=== PATIENT | female | born 1945 | race Caucasian/White ===

== ENCOUNTER 2018-10-02 05:48 | Inpatient (IN) | payer BC ==
[2018-09-24 12:41] VITALS: BMI 33.3
[2018-10-02] MEDS ORDERED: CEFAZOLIN 1 GM/D5W 1 GRAM/50 ML BAG IVPB ONE (06:32)
[2018-10-02] MEDS ORDERED: GABAPENTIN 300 MG CAPSULE (FP) PO ONE (06:32)
[2018-10-02] MEDS ORDERED: TRANEXAMIC ACID 1000 MG/10 ML VIAL IVPUSH ONE (06:32)
[2018-10-02] MEDS ORDERED: CELECOXIB 200 MG CAPSULE PO ONE (06:32)
[2018-10-02] MEDS ORDERED: VANCOMYCIN 1,000 MG VIAL (RESTRICTED TO ID ONLY) ONE (07:14)
[2018-10-02] MEDS ORDERED: ceFAZolin SODIUM 1 GM VIAL ONE ×2 (07:14→08:35)
[2018-10-02] MEDS ORDERED: MIDAZOLAM HCL 2 MG/2 ML SINGLE DOSE VIAL ONE (07:24)
[2018-10-02] MEDS ORDERED: BUPIVACAINE LIPOSOME/PF (EXPAREL) 266 MG/20 ML VIAL ONE (07:24)
[2018-10-02] MEDS ORDERED: SODIUM CHLORIDE 0.9% P/F 10 ML VIAL IJ ONE (07:24)
--- NOTE | 2018-10-02 07:52 | HP ---
Satellite [facility] - Chief Complaint Chief Complaint: left knee pain - Past Medical History Allergies/Adverse Reactions: Allergies Allergy/AdvReac Type Severity Reaction Status Date / Time metronidazole [From Flagyl] Allergy Severe RESPIRATORY Verified 10/02/18 06:51 DISTRESS, SWELLING mushroom Allergy Severe SEVERE Verified 10/02/18 06:51 ABDOMINAL PAIN - Current Medications Current Medications: Home Medications Medication Instructions Recorded Albuterol 0.083% Nebulizer Ruma 1 neb NEB Q6H PRN 09/18/18 [Ventolin 0.083% Nebulizer Soln -] Albuterol Sulfate [Proair Hfa] 8.5 gm IH PRN PRN 09/18/18 Citalopram Hydrobromide [Celexa -] 20 mg PO DAILY 09/18/18 Fluticasone/Salmeterol [Advair 1 each IH BID 09/18/18 250-50 Diskus] Metoprolol Succinate [Toprol Xl] 25 mg PO HS 09/18/18 Omeprazole Magnesium [Prilosec Otc] 20 mg PO PRN PRN 09/18/18 Rivaroxaban [Xarelto -] 20 mg PO HS 09/18/18 Triamterene/Hydrochlorothiazid 1 cap PO DAILY 09/18/18 [Triamterene-Hctz 37.5-25 mg Cp] clonazePAM [Klonopin -] 0.5 mg PO PRN PRN 09/18/18 Satellite Physical Exam - Physical Examination Vital Signs: Vital Signs Period Temp Pulse Resp BP Sys/Salazar Pulse Ox Last 24 Hr 97.8 F 67 18 102/62 98 General Appearance: Well Nourished, Well Developed, Alert & Oriented x3 ENT: Clear Lung: Normal air movement Heart: Regular rate & rhythm Extremities: Other (left knee- + swelling, + ttp, decr rom, nvi xrays show grade 4 tricompartmental djd) Neurological: Intact, Alert, Oriented Satellite Impression/Plan - Impression/Plan Impression: left knee djd Operative Procedure: left ricardo tkr Date to be Performed: 10/02/18
[2018-10-02] MEDS ORDERED: PROPOFOL 20 ML ONE (08:35)
[2018-10-02] MEDS ORDERED: TRANEXAMIC ACID 1000 MG/10 ML VIAL ONE (08:41)
[2018-10-02] MEDS ORDERED: ALBUTEROL SO4 0.083% IH SOL 2.5 MG/3 ML VIAL.NEB. NEB PRN (10:12)
[2018-10-02] MEDS ORDERED: ALBUTEROL SO4 8 GM HFA INHALER IH PRN (10:12)
[2018-10-02] MEDS ORDERED: clonazePAM 0.5 MG TABLET PO PRN (10:12)
[2018-10-02] MEDS ORDERED: MAG HYDROX/AL HYDROX/SIMETH 30 ML UNIT-DOSE CUP PO PRN (10:14)
[2018-10-02] MEDS ORDERED: MAGNESIUM HYDROX 2400MG/30ML ORAL SUSPENSION 30 ML CUP PO PRN (10:14)
[2018-10-02] MEDS ORDERED: LACTATED RINGERS SOLUTION 1,000 ML IV SCH (10:15)
--- NOTE | 2018-10-02 10:15 | OP ---
Operative Note - Note: Operative Date: 10/02/18 (gene) Pre-Operative Diagnosis: left knee djd Operation: left ricardo tkr Post-Operative Diagnosis: Same as Pre-op Surgeon: Yosi Clay Engraver Automatic: Greg Alvarado Anesthesiologist/POULTRY HATCHERY MANAGER: Jenny West Anesthesia: Spinal, Local Specimens Removed: bone fragments Estimated Blood Loss (mls): 150 Operative Report Dictated: Yes
[2018-10-02] MEDS ORDERED: oxyCODONE HCL 5 MG TABLET ONE (12:45)
[2018-10-02] MEDS ORDERED: ONDANSETRON 4 MG/2 ML VIAL IVPUSH PRN (13:08)
[2018-10-02] MEDS: oxyCODONE HCL 5 MG TABLET PO PRN ×2 (15:11→18:23)
[2018-10-02] MEDS: ACETAMINOPHEN 325 MG TABLET (FP) PO SCH ×2 (15:11→20:21)
--- NOTE | 2018-10-02 15:19 | SPEC ---
DATE OF OPERATION: 10/02/2018 PREOPERATIVE DIAGNOSIS: Degenerative joint disease, left knee. POSTOPERATIVE DIAGNOSIS: Degenerative joint disease, left knee. PROCEDURE: Press-Fit left total knee replacement with robotic-assisted navigation (MAKOplasty). SURGICAL ATTENDING: Yosi Clay MD PHILOSOPHY AND RELIGION INSTRUCTOR: LUIS ALBERTO Cano ANESTHESIA: Regional and spinal. CLOSURE: A cementless Triathlon knee system with a 3 tibia, a 4 femur, an 11 polyethylene, a 32 patella; No. 1 Vicryl fascia, 0 and 2-0 subcutaneous; and 3-0 Monocryl subcuticular with skin glue for skin; 4-0 undyed Vicryl for pin sites. ESTIMATED BLOOD LOSS: Less than 100 mL. COMPLICATIONS: None. CONDITION: To recovery room in stable condition. DESCRIPTION OF OPERATIVE PROCEDURE: Patient was taken to the operating room on October 02, 2018. Regional and spinal anesthesia was administered by the anesthesiologist. IV Kefzol was administered prophylactically prior to the case as well as TXA. The left lower extremity was prepped and draped in the usual sterile fashion. The midline 10- to 12-cm longitudinal incision was made. Hemostasis was achieved with Bovie cautery. Sharp dissection was carried down to the extensor mechanism which was perform the procedure. Medial parapatellar arthrotomy was then performed, leaving a cuff of tissue for later closure. The patella was inverted and the knee was flexed up. The fat pad was excised. Subperiosteal dissection was done on the anteromedial proximal tibia until the knee was able to be brought forward. This was facilitated by taking the ACL, PCL and medial and lateral menisci. Checkpoints were placed in both the femur and in the tibia. Two parallel threaded pins were drilled superior to the knee joint through the already made incision from anterior to posterior just going through the anterior cortex but just engaging but not going through the posterior cortex. Two threaded pins were drilled through 2 small stab incisions in parallel fashion 1 handbreadth below the tibial tubercle through the anterior cortex of the tibia and engaging but not going through the posterior cortex. Both sets of pins were attached to navigation arrays for the MONIKA system. The knee was then registered with the navigation system with center of rotation of the hip, medial and lateral malleoli and multiple sites both on the tibia and on the femur. Confirmation of excellent registration was confirmed by "popping the bubbles." At this time, the knee was thoroughly inspected to remove all osteophytes around the knee. The knee was then tensioned in varus/valgus at both full extension and at 90 degrees of flexion to ascertain our gaps. The virtual position of the components was optimized to ensure equal gaps throughout the range of motion. Once this was performed, the robot was brought into the field, was registered. The bone was cut as per the specifications on both the tibia and on the femur. The box cuts were then made as well. Excellent trial stability was obtained on the femur. The tibial baseplate was allowed to "find itself" and then was clipped into place. Confirmation of excellent external rotation of that component was confirmed by the navigation device as well.The patella was calibered for thickness and cut at the appropriate level. The appropriate lollipop was used to drill 3 holes in the patella and a trial asymmetric patellar button was applied. The knee was taken through a range of motion and found to have excellent stability from full extension to full flexion with excellent tracking of the patella. The trial components were then removed. The lug holes were drilled in the femur. The cementless keel was punched in the tibia. The real Press-Fit components were malleted into place, first with the tibia and then with the femur, and then the patella was crimped into place as well. The real polyethylene liner was then clipped into place. Range of motion, stability and tracking were as described earlier. The knee was thoroughly irrigated with copious amounts of irrigation. Vancomycin powder was placed inside the joint. The medial parapatellar arthrotomy was then closed using No. 1 Vicryl interrupted suture. Post closure of the arthrotomy, the knee was taken through a range of motion and found to have no undue tension on the repair. The subcutaneous was then pulse antibiotic irrigated, closed with 0 and 2-0 Vicryl and 3-0 Monocryl subcuticular with skin glue for the skin. Prior to closure, the checkpoints were removed as were the threaded pins. The tibial pin sites were closed with 4-0 undyed Vicryl. A sterile pressure Aquacel dressing was applied. No tourniquet was used during the case. The total blood loss was less than 100 mL. No complication. Patient was transferred to recovery in stable condition. Vicente [id number]
[2018-10-02] MEDS: CEFAZOLIN 2 GM/D5W 2 GM/50 ML ML IVPB SCH ×2 (16:00→23:57)
[2018-10-02] MEDS ORDERED: diazePAM 2 MG TABLET PO PRN (16:20)
[2018-10-02] MEDS ORDERED: PT OWN MED DRAWER 7, Y5N ONE (21:10)
[2018-10-02] MEDS: GABAPENTIN 300 MG CAPSULE (FP) PO SCH (21:56)
[2018-10-02] MEDS: SENNOSIDES/DOCUSATE COMBO (SENNA PLUS) TABLET (UD) PO SCH (21:56)
[2018-10-02] MEDS: oxyCODONE HCL 10 MG SUSTAINED ACTING TABLET PO SCH (21:56)
[2018-10-02] MEDS: BUDESONIDE/FORMETEROL FUMARATE 80/4.5 mcg INHALER IH SCH (21:57)
[2018-10-02] MEDS ORDERED: metoPROLOL SUCCINATE 25 MG TAB.SR.24H (FP) PO SCH (22:00)
[2018-10-03] MEDS: ACETAMINOPHEN 325 MG TABLET (FP) PO SCH ×4 (02:15→21:36)
[2018-10-03] MEDS: oxyCODONE HCL 5 MG TABLET PO PRN ×3 (06:27→21:59)
[2018-10-03 08:13] LABS: HEMATOCRIT 34.9 % (32.4-45.2); HEMOGLOBIN 11.7 GM/dl (10.7-15.3); MCH 28.8 pg (25.7-33.7); MCHC 33.5 g/dl (32.0-36.0); MEAN CELL VOLUME 85.9 fl (80-96); MEAN PLT VOLUME 6.6 fl (7.5-11.1); PLATELET COUNT 185 K/MM3 (134-434); RBC 4.06 M/mm3 (3.60-5.2); RDW 13.7 % (11.6-15.6); WHITE BLOOD COUNT 7.4 K/mm3 (4.0-10.8)
[2018-10-03] MEDS ORDERED: PT OWN MED DRAWER 7, Y5N ONE (09:05)
--- NOTE | 2018-10-03 09:46 | PN ---
Progress Note (short form) - Note Progress Note: Ortho Pt seen and examined s/p left ricardo tkr pod #1 Selected Entries 10/03/18 05:51 Temperature 98.1 F Pulse Rate 71 Respiratory 18 Rate Blood Pressure 100/65 Laboratory Tests 10/03/18 07:52 WBC 7.4 Hgb 11.7 Hct 34.9 Plt Count 185 dressing c/d/i, calf soft nt rom 0-40, nvi a/p PT dvt ppx pain control d/c home tomorrow if stable
[2018-10-03] MEDS: SENNOSIDES/DOCUSATE COMBO (SENNA PLUS) TABLET (UD) PO SCH ×2 (10:30→21:35)
[2018-10-03] MEDS: GABAPENTIN 300 MG CAPSULE (FP) PO SCH ×2 (10:37→21:35)
[2018-10-03] MEDS: PANTOPRAZOLE 40 MG TABLET (FP) PO SCH (10:37)
[2018-10-03] MEDS: CITALOPRAM HYDROBROMIDE 20 MG TABLET (FP) PO SCH (10:37)
[2018-10-03] MEDS: MULTIVITAMINS (DAILY MVI) TABLET (FP) PO SCH (10:37)
[2018-10-03] MEDS: oxyCODONE HCL 10 MG SUSTAINED ACTING TABLET PO SCH ×2 (10:38→21:35)
[2018-10-03] MEDS: TRIAMTERENE AND HCTZ - 37.5 MG/25 MG CAPSULE PO SCH (10:39)
[2018-10-03] MEDS: BUDESONIDE/FORMETEROL FUMARATE 80/4.5 mcg INHALER IH SCH ×2 (10:39→21:35)
--- NOTE | 2018-10-03 13:28 | PN ---
Progress Note (short form) - Note Progress Note: ANESTHESIOLOGY POST-OP CHECK 72F s/p left TKR under spinal anesthesia with PNB, POD #1. no acute complaints. Pain 6/10 and tolerable. Ambulating, tolerating PO, denies N/V, backache, headache, numbness, weakness. Vital Signs Temperature 98.1 F 10/03/18 05:51 Pulse Rate 71 10/03/18 05:51 Respiratory Rate 18 10/03/18 05:51 Blood Pressure 100/65 10/03/18 05:51 O2 Sat by Pulse Oximetry (%) 94 L 10/03/18 05:51 Active Medications Acetaminophen (Tylenol -) 650 mg PO Q6H [facility] Stop: 10/05/18 14:59 Last Admin: 10/03/18 10:23 Dose: 650 mg Al Hydroxide/Mg Hydroxide (Mylanta Oral Suspension -) 30 ml PO Q4H PRN PRN Reason: DYSPEPSIA Albuterol Sulfate (Ventolin 0.083% Nebulizer Soln -) 1 amp NEB Q6H PRN PRN Reason: ASTHMA Albuterol Sulfate (Ventolin Hfa Inhaler -) 2 puff IH PRN PRN PRN Reason: ASTHMA Budesonide/Formoterol Fumarate (Symbicort 80/4.5mcg -) 2 puff IH BID [facility] Last Admin: 10/03/18 10:39 Dose: 2 puff Citalopram Hydrobromide (Celexa -) 20 mg PO DAILY [facility] Last Admin: 10/03/18 10:37 Dose: 20 mg Clonazepam (Klonopin -) 0.5 mg PO DAILY PRN PRN Reason: ANXIETY Diazepam (Valium -) 2 mg PO Q4H PRN PRN Reason: MUSCLE SPASMS Stop: 10/05/18 16:21 Gabapentin (Neurontin -) 300 mg PO BID [facility] Last Admin: 10/03/18 10:37 Dose: 300 mg Magnesium Hydroxide (Milk Of Magnesia -) 30 ml PO PRN PRN PRN Reason: CONSTIPATION Metoprolol Succinate (Toprol Xl -) 25 mg PO [facility] Multivitamins/Minerals/Vitamin C (Tab-A-Vit -) 1 tab PO DAILY [facility] Last Admin: 10/03/18 10:37 Dose: 1 tab Ondansetron HCl (Zofran Injection) 4 mg IVPUSH Q6H PRN PRN Reason: NAUSEA AND/OR VOMITING Oxycodone HCl (Roxicodone -) 5 mg PO Q3H PRN PRN Reason: PAIN LEVEL 1-5 Last Admin: 10/03/18 10:38 Dose: 5 mg Oxycodone HCl (Roxicodone -) 10 mg PO Q3H PRN PRN Reason: PAIN LEVEL 6-10 Last Admin: 10/02/18 18:23 Dose: 10 mg Oxycodone HCl (Oxycontin -) 10 mg PO BID [facility] Stop: 10/05/18 13:09 Last Admin: 10/03/18 10:38 Dose: Not Given Pantoprazole Sodium (Protonix -) 40 mg PO DAILY [facility] Last Admin: 10/03/18 10:37 Dose: 40 mg Rivaroxaban (Xarelto -) 20 mg PO [facility] Senna/Docusate Sodium (Pericolace -) 2 tablet PO BID [facility] Last Admin: 10/03/18 10:30 Dose: 2 tablet Triamterene/HCTZ (Dyazide 25/37.5mg) 1 cap PO DAILY [facility] Last Admin: 10/03/18 10:39 Dose: Not Given Gen; awake, alert, NAD Ext: No sensory or motor deficits. No apparent anesthesia complications, pain well controlled. Continue management as per primary team.
[2018-10-03] MEDS ORDERED: RIVAROXABAN 10 MG TABLET PO SCH (22:00)
[2018-10-03] MEDS ORDERED: diphenhydrAMINE HCL 25 MG CAPSULE (FP) PO ONE (22:00)
[2018-10-04] MEDS: ACETAMINOPHEN 325 MG TABLET (FP) PO SCH ×3 (06:09→15:33)
[2018-10-04 08:29] LABS: HEMATOCRIT 32.4 % (32.4-45.2); MCH 28.8 pg (25.7-33.7); MCHC 33.9 g/dl (32.0-36.0); MEAN CELL VOLUME 85.1 fl (80-96); MEAN PLT VOLUME 6.8 fl (7.5-11.1); PLATELET COUNT 198 K/MM3 (134-434); RBC 3.81 M/mm3 (3.60-5.2); RDW 13.4 % (11.6-15.6)
--- NOTE | 2018-10-04 08:39 | PN ---
Progress Note (short form) - Note Progress Note: Ortho Pt seen and examined s/p left ricardo tkr pod #2 Selected Entries 10/04/18 05:55 Temperature 98.1 F Pulse Rate 67 Respiratory 18 Rate Blood Pressure 107/52 L Laboratory Tests 10/04/18 08:17 WBC 8.0 Hgb 11.0 Hct 32.4 Plt Count 198 dressing c/d/i, calf soft nt rom 0-40, nvi a/p PT dvt ppx pain control d/c home today f/u in 1 week
--- NOTE | 2018-10-04 08:39 | DS ---
Physical Examination Vital Signs: Vital Signs Temperature 98.1 F 10/04/18 05:55 Pulse Rate 67 10/04/18 05:55 Respiratory Rate 16 10/04/18 08:36 Blood Pressure 107/52 L 10/04/18 05:55 O2 Sat by Pulse Oximetry (%) 99 10/04/18 08:36 Labs: CBC, BMP 10/04/18 08:17 Discharge Summary Reason For Visit: OSTEOARTHRITIS Procedures: Principal: left tkr Hospital Course: admitted for elective left ricardo tkr, uneventful post-op, stable for d/c Condition: Good - Instructions Diet, Activity, Other Instructions: Post-op Instructions-Total Knee Replacement Call the office for a follow-up appointment in 1 week - [phone] Aspirin 325mg daily for 6 weeks. Pain medication was sent into your pharmacy. Apply Graduated Compression Stockings (TEDs) to both lower extremities- remove daily for hygiene ONLY Apply Sequential Compression Device (SCDs) to both Lower extremities remove for PT and hygiene ONLY Apply cold packs to affected area for 15 minutes every 2 hours. Physical Therapist will come to your home for the first 5 days. You will be set up with outpatient PT at your first post-operative visit. Patient may ambulate as tolerated-encourage self care (at least every 2-3 hours while awake) with walker or cane Maintain Aquacel (waterproof) dressing to operative wound (will be removed by surgeon at first office visit) Shower with Aquacel dressing in place-if Aquacel integrity compromised, remove and apply dry sterile dressing and notify Orthopedist. DO NOT SHOWER unless Orthopedists approves without Aquacel dressing CONTACT THE OFFICE FOR ANY CHANGE IN YOUR CONDITION (for example-fever greater than 102 degrees, excessive bleeding from operative site, purulent drainage, severe swelling or pain) GO TO THE EMERGENCY ROOM IF THERE IS A MEDICAL EMERGENCY Knee Precautions: * Keep a rolled towel under affected heel while in bed or chair (to keep knee in extension) * Keep affected leg elevated except during mealtimes * DO NOT PLACE PILLOW UNDER AFFECTED KNEE * If you have any questions, please do not hesitate to call the office - . Referrals: Yosi Clay MD [Staff Physician] - Disposition: VNS/HOME HEALTH CARE - Home Medications Comprehensive Discharge Medication List: Ambulatory Orders Albuterol 0.083% Nebulizer Ruma [Ventolin 0.083% Nebulizer Soln -] 1 neb NEB Q6H PRN 09/18/18 Albuterol Sulfate [Proair Hfa] 8.5 gm IH PRN PRN 09/18/18 Citalopram Hydrobromide [Celexa -] 20 mg PO DAILY 09/18/18 Fluticasone/Salmeterol [Advair 250-50 Diskus] 1 each IH BID 09/18/18 Metoprolol Succinate [Toprol Xl] 25 mg PO HS 09/18/18 Omeprazole Magnesium [Prilosec Otc] 20 mg PO PRN PRN 09/18/18 Rivaroxaban [Xarelto -] 20 mg PO HS 09/18/18 Triamterene/Hydrochlorothiazid [Triamterene-Hctz 37.5-25 mg Cp] 1 cap PO DAILY 09/18/18 clonazePAM [Klonopin -] 0.5 mg PO PRN PRN 09/18/18 Oxycodone HCl/Acetaminophen [Percocet 5-325 mg Tablet -] 1 - 2 tab PO Q6H #50 tab MDD 8 10/02/18
[2018-10-04] MEDS ORDERED: PT OWN MED DRAWER 7, Y5N ONE (09:01)
[2018-10-04] MEDS: CITALOPRAM HYDROBROMIDE 20 MG TABLET (FP) PO SCH (09:17)
[2018-10-04] MEDS: MULTIVITAMINS (DAILY MVI) TABLET (FP) PO SCH (09:18)
[2018-10-04] MEDS: oxyCODONE HCL 10 MG SUSTAINED ACTING TABLET PO SCH (09:18)
[2018-10-04] MEDS: TRIAMTERENE AND HCTZ - 37.5 MG/25 MG CAPSULE PO SCH (09:18)
[2018-10-04] MEDS: SENNOSIDES/DOCUSATE COMBO (SENNA PLUS) TABLET (UD) PO SCH (09:18)
[2018-10-04] MEDS: PANTOPRAZOLE 40 MG TABLET (FP) PO SCH (09:18)
[2018-10-04] MEDS: GABAPENTIN 300 MG CAPSULE (FP) PO SCH (09:18)
[2018-10-04] MEDS: BUDESONIDE/FORMETEROL FUMARATE 80/4.5 mcg INHALER IH SCH (09:19)
--- NOTE | 2018-10-04 13:13 | PATH ---
Surgical Pathology Report Patient Name: JHONNY VIVAR Med. Rec. #: [id number] /Age/Gender: 1945 (Age: 72) / F Account: [id number] Location: [facility] MED-SURG Taken: 10/02/2018 Received: 10/02/2018 Reported: 10/04/2018 Physicians: Yosi Clay M.D. Specimen(s) Received LEFT KNEE Clinical History Left knee osteoarthritis Final Diagnosis BONE, LEFT KNEE, TOTAL KNEE REPLACEMENT: DEGENERATIVE JOINT DISEASE. Electronically Signed Keyana Tate M.D. Gross Description Received in formalin labeled "bone left knee," is a 12.5 x 8.0 x 2.5 cm aggregate of multiple portions of bone and soft tissue. The tibial plateau measures 7.3 x 5.3 x 1.8 cm. No areas of eburnation are identified. The articular surfaces are oliva brown and diffusely granular. The underlying trabecular bone is yellow and hard. Lump Room Supervisor sections are submitted in one cassette, following decalcification. 10/03/2018 [facility]10/03/2018
[2018-10-04 14:15] VITALS: BP 108/49; PULSE 70; TEMP 98.2
[2018-10-04] MEDS: oxyCODONE HCL 5 MG TABLET PO PRN (15:33)
== END 2018-10-04 15:50 | disposition home health service (06) | DRG 470 ==
LOC: FM/S 05:48
PROVIDERS: ADMIT Orthopaedic Surgery; ATTEND Orthopaedic Surgery
PROC: 8E0Y0CZ Robotic Assisted Procedure of Lower Extremity, Open Approach (ICD-10-PCS; 2018-10-02)
PROC: 0SRD0JA Replacement of Left Knee Joint with Synthetic Substitute, Uncemented, Open Approach (ICD-10-PCS; principal; 2018-10-02 08:45)
DX: M17.12 Unilateral primary osteoarthritis, left knee (principal)
CPT/HCPCS: 36415; 73560-TC-LT-FY; 85027; 88304-TC; 88311-TC; 94760; 97116-GP; 97162-GP

== ENCOUNTER 2018-12-25 07:51 | Inpatient (IN) | payer BC ==
[2018-12-17 12:43] VITALS: BMI 32.1
--- NOTE | 2018-12-25 07:58 | HP ---
Satellite H - Chief Complaint Chief Complaint: right knee pain - Past Medical History Allergies/Adverse Reactions: Allergies Allergy/AdvReac Type Severity Reaction Status Date / Time metronidazole [From Flagyl] Allergy Severe RESPIRATORY Verified 10/02/18 06:51 DISTRESS, SWELLING mushroom Allergy Severe SEVERE Verified 10/02/18 06:51 ABDOMINAL PAIN - Current Medications Current Medications: Home Medications Medication Instructions Recorded Albuterol 0.083% Nebulizer Ruma 1 neb NEB Q6H PRN 09/18/18 [Ventolin 0.083% Nebulizer Soln -] Albuterol Sulfate [Proair Hfa] 8.5 gm IH PRN PRN 09/18/18 Citalopram Hydrobromide [Celexa -] 20 mg PO DAILY 09/18/18 Fluticasone/Salmeterol [Advair 1 each IH BID 09/18/18 250-50 Diskus] Metoprolol Succinate [Toprol Xl] 25 mg PO HS 09/18/18 Omeprazole Magnesium [Prilosec Otc] 20 mg PO PRN PRN 09/18/18 Rivaroxaban [Xarelto -] 20 mg PO HS 09/18/18 Triamterene/Hydrochlorothiazid 1 cap PO DAILY 09/18/18 [Triamterene-Hctz 37.5-25 mg Cp] clonazePAM [Klonopin -] 0.5 mg PO PRN PRN 09/18/18 Satellite Physical Exam - Physical Examination General Appearance: Well Nourished, Well Developed, Alert & Oriented x3 ENT: Clear Lung: Normal air movement Heart: Regular rate & rhythm Extremities: Other (right knee- +Swelling, + ttp, decr rom, nvi xrays show grade 4 tricompartmental djd) Neurological: Intact, Alert, Oriented Satellite Impression/Plan - Impression/Plan Impression: right knee djd Operative Procedure: right ricardo tkr Date to be Performed: 12/25/18
[2018-12-25] MEDS ORDERED: TRANEXAMIC ACID 1000 MG/10 ML VIAL IVPUSH ONE (08:03)
[2018-12-25] MEDS ORDERED: CEFAZOLIN 2 GM in DEXTROSE 5%-WATER - 50 ML IVPB ONE (08:03)
[2018-12-25] MEDS: CELECOXIB 200 MG CAPSULE PO ONE ×2 (09:35→16:40)
[2018-12-25] MEDS: GABAPENTIN 300 MG CAPSULE (FP) PO ONE ×2 (09:35→16:40)
[2018-12-25] MEDS ORDERED: VANCOMYCIN 1,000 MG VIAL (RESTRICTED TO ID ONLY) ONE (10:30)
[2018-12-25] MEDS ORDERED: ceFAZolin SODIUM 1 GM VIAL ONE (10:30)
[2018-12-25] MEDS ORDERED: BUPIVACAINE HCL/PF 2.5 MG/ML - 30 ML VIAL IJ ONE (10:32)
[2018-12-25] MEDS ORDERED: BUPIVACAINE LIPOSOME/PF (EXPAREL) 266 MG/20 ML VIAL ONE (10:32)
[2018-12-25] MEDS ORDERED: MIDAZOLAM HCL 2 MG/2 ML SINGLE DOSE VIAL ONE ×2 (10:32→12:01)
[2018-12-25] MEDS ORDERED: BUPIVACAINE HCL/PF 0.5% (5MG/ML) 10 ML VIAL ONE (10:34)
[2018-12-25] MEDS ORDERED: ALBUTEROL SO4 0.083% IH SOL 2.5 MG/3 ML VIAL.NEB. NEB PRN (12:08)
[2018-12-25] MEDS ORDERED: ALBUTEROL SO4 8 GM HFA INHALER IH PRN (12:08)
[2018-12-25] MEDS ORDERED: clonazePAM 0.5 MG TABLET PO PRN (12:08)
[2018-12-25] MEDS ORDERED: MAGNESIUM HYDROX 2400MG/30ML ORAL SUSPENSION 30 ML CUP PO PRN (12:09)
[2018-12-25] MEDS ORDERED: LACTATED RINGERS SOLUTION 1,000 ML IV SCH (12:15)
[2018-12-25] MEDS ORDERED: ePHEDrine SULFATE 50 MG/1 ML AMPULE ONE ×2 (12:31)
[2018-12-25] MEDS ORDERED: KETAMINE HCL 200 MG/20 ML VIAL ONE (12:40)
--- NOTE | 2018-12-25 13:45 | OP ---
Operative Note - Note: Operative Date: 12/25/18 (gene) Pre-Operative Diagnosis: right knee djd Operation: right ricardo tkr Post-Operative Diagnosis: Same as Pre-op Surgeon: Yosi Clay Timber Grader: Greg Alvarado Anesthesiologist/COLD MEAT CHEF: Misbah Matos Anesthesia: Spinal, Local Specimens Removed: bone fragments Estimated Blood Loss (mls): 150 Operative Report Dictated: Yes
[2018-12-25] MEDS ORDERED: PROMETHAZINE HCL 25 MG/1 ML VIAL IVPUSH PRN (15:13)
[2018-12-25] MEDS ORDERED: oxyCODONE HCL 5 MG TABLET PO PRN ×3 (15:13)
[2018-12-25] MEDS ORDERED: ONDANSETRON 4 MG/2 ML VIAL IVPUSH PRN (15:13)
[2018-12-25] MEDS: ACETAMINOPHEN 325 MG TABLET (FP) PO SCH ×2 (15:30→20:24)
[2018-12-25] MEDS: oxyCODONE HCL 5 MG TABLET PO PRN (18:39)
[2018-12-25] MEDS: CEFAZOLIN 2 GM/D5W 2 GM/50 ML ML IVPB SCH (20:25)
--- NOTE | 2018-12-25 20:39 | SPEC ---
DATE OF OPERATION: 12/25/2018 PREOPERATIVE DIAGNOSIS: Degenerative joint disease, right knee. POSTOPERATIVE DIAGNOSIS: Degenerative joint disease, right knee. PROCEDURE: Right total knee replacement, cementless, with robotic-assisted navigation (MAKOplasty). SURGICAL ATTENDING: Yosi Clay MD TELEPHONE EXCHANGE OPERATOR: LUIS ALBERTO Cano ANESTHESIA: Regional and spinal. CLOSURE: A Triathlon cementless knee system with a 4 femur, 4 tibia, 9 polyethylene, a 32 patella; No. 1 Vicryl, fascia; 0 and 2-0 for subcutaneous; and 3-0 Monocryl subcuticular with skin glue for skin; 4-0 undyed Vicryl for pin sites. ESTIMATED BLOOD LOSS: Less than 100 mL. COMPLICATIONS: None. CONDITION: To recovery room in stable condition. DESCRIPTION OF OPERATIVE PROCEDURE: Patient was taken to the operating room on December 25, 2018. Regional and spinal anesthesia was administered by the anesthesiologist. IV Kefzol was administered prophylactically prior to the case as well as TXA. The right lower extremity was prepped and draped in the usual sterile fashion. The midline 10- to 12-cm longitudinal incision was made. Hemostasis was achieved with Bovie cautery. Sharp dissection was carried down to the extensor mechanism which was perform the procedure. Medial parapatellar arthrotomy was then performed, leaving a cuff of tissue for later closure. The patella was inverted and the knee was flexed up. The fat pad was excised. Subperiosteal dissection was done on the anteromedial proximal tibia until the knee was able to be brought forward. This was facilitated by taking the ACL, PCL and medial and lateral menisci. Checkpoints were placed in both the femur and in the tibia. Two parallel threaded pins were drilled superior to the knee joint through the already made incision from anterior to posterior just going through the anterior cortex but just engaging but not going through the posterior cortex. Two threaded pins were drilled through 2 small stab incisions in parallel fashion 1 handbreadth below the tibial tubercle through the anterior cortex of the tibia and engaging but not going through the posterior cortex. Both sets of pins were attached to navigation arrays for the MONIKA system. The knee was then registered with the navigation system with center of rotation of the hip, medial and lateral malleoli and multiple sites both on the tibia and on the femur. Confirmation of excellent registration was confirmed by "popping the bubbles." At this time, the knee was thoroughly inspected to remove all osteophytes around the knee. The knee was then tensioned in varus/valgus at both full extension and at 90 degrees of flexion to ascertain our gaps. The virtual position of the components was optimized to ensure equal gaps throughout the range of motion. Once this was performed, the robot was brought into the field, was registered. The bone was cut as per the specifications on both the tibia and on the femur. The box cuts were then made as well. Excellent trial stability was obtained on the femur. The tibial baseplate was allowed to "find itself" and then was clipped into place. Confirmation of excellent external rotation of that component was confirmed by the navigation device as well.The patella was calibered for thickness and cut at the appropriate level. The appropriate lollipop was used to drill 3 holes in the patella and a trial asymmetric patellar button was applied. The knee was taken through a range of motion and found to have excellent stability from full extension to full flexion with excellent tracking of the patella. The trial components were then removed. The lug holes were drilled in the femur. The cementless keel was punched in the tibia. The real Press-Fit components were malleted into place, first with the tibia and then with the femur, and then the patella was crimped into place as well. The real polyethylene liner was then clipped into place. Range of motion, stability and tracking were as described earlier. The knee was thoroughly irrigated with copious amounts of irrigation. Vancomycin powder was placed inside the joint. The medial parapatellar arthrotomy was then closed using No. 1 Vicryl interrupted suture. Post closure of the arthrotomy, the knee was taken through a range of motion and found to have no undue tension on the repair. The subcutaneous was then pulse antibiotic irrigated, closed with 0 and 2-0 Vicryl and 3-0 Monocryl subcuticular with skin glue for the skin. Prior to closure, the checkpoints were removed as were the threaded pins. The tibial pin sites were closed with 4-0 undyed Vicryl. A sterile pressure Aquacel dressing was applied. No tourniquet was used during the case. The total blood loss was less than 100 mL. No complication. Patient was transferred to recovery in stable condition. Vicente [id number]
[2018-12-25] MEDS: BUDESONIDE/FORMETEROL FUMARATE 80/4.5 mcg INHALER IH SCH (21:12)
[2018-12-25] MEDS: SENNOSIDES/DOCUSATE COMBO (SENNA PLUS) TABLET (UD) PO SCH (21:12)
[2018-12-25] MEDS: oxyCODONE HCL 10 MG SUSTAINED ACTING TABLET PO SCH (21:12)
[2018-12-25] MEDS: metoPROLOL SUCCINATE 25 MG TAB.SR.24H (FP) PO SCH (21:13)
[2018-12-26] MEDS: BUDESONIDE/FORMETEROL FUMARATE 80/4.5 mcg INHALER IH SCH ×4 (00:14→22:05)
[2018-12-26] MEDS: CEFAZOLIN 2 GM/D5W 2 GM/50 ML ML IVPB SCH (02:59)
[2018-12-26] MEDS: ACETAMINOPHEN 325 MG TABLET (FP) PO SCH ×4 (02:59→21:58)
[2018-12-26] MEDS: MAG HYDROX/AL HYDROX/SIMETH 30 ML UNIT-DOSE CUP PO PRN ×2 (04:20→12:41)
[2018-12-26] MEDS: oxyCODONE HCL 5 MG TABLET PO PRN ×2 (05:53→18:54)
[2018-12-26 07:51] LABS: HEMOGLOBIN 9.4 GM/dl (10.7-15.3); MEAN CELL VOLUME 85.7 fl (80-96); MEAN PLT VOLUME 6.2 fl (7.5-11.1)
[2018-12-26 08:07] LABS: HEMATOCRIT 28.1 % (32.4-45.2); MCH 28.7 pg (25.7-33.7); MCHC 33.5 g/dl (32.0-36.0); PLATELET COUNT 225 K/MM3 (134-434); RBC 3.29 M/mm3 (3.60-5.2); RDW 13.4 % (11.6-15.6); WHITE BLOOD COUNT 5.7 K/mm3 (4.0-10.8)
--- NOTE | 2018-12-26 08:21 | PN ---
Progress Note (short form) - Note Progress Note: Ortho Pt seen and examined s/p right ricardo tkr pod #1 Selected Entries 12/26/18 06:00 Temperature 97.7 F Pulse Rate 58 L Respiratory 18 Rate Blood Pressure 98/49 L Laboratory Tests 12/26/18 07:15 WBC 5.7 Hgb 9.4 L Hct 28.1 L Plt Count 225 dressing c/d/i, calf soft, nt rom 0-50, nvi a/p PT dvt ppx pain control d/c home tomorrow if stable
[2018-12-26] MEDS ORDERED: PT OWN MED DRAWER 7, Y5N ONE (09:08)
[2018-12-26] MEDS: CITALOPRAM HYDROBROMIDE 20 MG TABLET (FP) PO SCH (09:26)
[2018-12-26] MEDS: MULTIVITAMINS (DAILY MVI) TABLET (FP) PO SCH (09:26)
[2018-12-26] MEDS: RIVAROXABAN 20 MG TABLET PO SCH ×2 (09:27→22:00)
[2018-12-26] MEDS: PANTOPRAZOLE 20 MG TABLET (FP) PO SCH (09:27)
[2018-12-26] MEDS: TRIAMTERENE AND HCTZ - 37.5 MG/25 MG CAPSULE PO SCH (09:27)
[2018-12-26] MEDS: SENNOSIDES/DOCUSATE COMBO (SENNA PLUS) TABLET (UD) PO SCH ×3 (09:28→22:11)
[2018-12-26] MEDS: oxyCODONE HCL 10 MG SUSTAINED ACTING TABLET PO SCH ×2 (10:00→21:59)
[2018-12-26] MEDS: diphenhydrAMINE HCL 25 MG CAPSULE (FP) PO PRN ×2 (14:31→22:01)
[2018-12-26] MEDS ORDERED: RIVAROXABAN 20 MG TABLET PO SCH (22:00)
[2018-12-26] MEDS: metoPROLOL SUCCINATE 25 MG TAB.SR.24H (FP) PO SCH ×2 (22:00→22:08)
[2018-12-27] MEDS: ACETAMINOPHEN 325 MG TABLET (FP) PO SCH ×2 (03:45→08:42)
[2018-12-27] MEDS: diphenhydrAMINE HCL 25 MG CAPSULE (FP) PO PRN (04:54)
--- NOTE | 2018-12-27 08:10 | PN ---
Progress Note (short form) - Note Progress Note: Ortho Pt seen and examined s/p right ricardo tkr pod #2. Pt developed yeast infection. Selected Entries 12/27/18 06:00 Temperature 98.3 F Pulse Rate 68 Respiratory 18 Rate Blood Pressure 95/43 L Laboratory Tests 12/27/18 07:00 WBC Pending Hgb Pending Hct Pending Plt Count Pending dressing c/d/i, calf soft, nt rom 0-50, nvi a/p PT dvt ppx pain control d/c home today f/u in 1 week will speak with PCP for Rx for yeast inf
--- NOTE | 2018-12-27 08:11 | DS ---
Physical Examination Vital Signs: Vital Signs Temperature 98.3 F 12/27/18 06:00 Pulse Rate 68 12/27/18 06:00 Respiratory Rate 18 12/27/18 06:00 Blood Pressure 95/43 L 12/27/18 06:00 O2 Sat by Pulse Oximetry (%) 98 12/27/18 06:00 Discharge Summary Reason For Visit: OSTEOARTHRITIS Procedures: Principal: right tkr Hospital Course: admitted for elective right ricardo tkr, uneventful post-op, stable for d/c Condition: Good - Instructions Diet, Activity, Other Instructions: Post-op Instructions-Total Knee Replacement Call the office for a follow-up appointment in 1 week - [phone] Restart Xarelto. Pain medication was sent into your pharmacy. Apply Graduated Compression Stockings (TEDs) to both lower extremities- remove daily for hygiene ONLY Apply Sequential Compression Device (SCDs) to both Lower extremities remove for PT and hygiene ONLY Apply cold packs to affected area for 15 minutes every 2 hours. Physical Therapist will come to your home for the first 5 days. You will be set up with outpatient PT at your first post-operative visit. Patient may ambulate as tolerated-encourage self care (at least every 2-3 hours while awake) with walker or cane Maintain Aquacel (waterproof) dressing to operative wound (will be removed by surgeon at first office visit) Shower with Aquacel dressing in place-if Aquacel integrity compromised, remove and apply dry sterile dressing and notify Orthopedist. DO NOT SHOWER unless Orthopedists approves without Aquacel dressing CONTACT THE OFFICE FOR ANY CHANGE IN YOUR CONDITION (for example-fever greater than 102 degrees, excessive bleeding from operative site, purulent drainage, severe swelling or pain) GO TO THE EMERGENCY ROOM IF THERE IS A MEDICAL EMERGENCY Knee Precautions: * Keep a rolled towel under affected heel while in bed or chair (to keep knee in extension) * Keep affected leg elevated except during mealtimes * DO NOT PLACE PILLOW UNDER AFFECTED KNEE * If you have any questions, please do not hesitate to call the office - . Referrals: Yosi Clay MD [Staff Physician] - Disposition: VNS/HOME HEALTH CARE - Home Medications Comprehensive Discharge Medication List: Ambulatory Orders Albuterol 0.083% Nebulizer Ruma [Ventolin 0.083% Nebulizer Soln -] 1 neb NEB Q6H PRN 09/18/18 Albuterol Sulfate [Proair Hfa] 8.5 gm IH PRN PRN 09/18/18 Citalopram Hydrobromide [Celexa -] 20 mg PO DAILY 09/18/18 Fluticasone/Salmeterol [Advair 250-50 Diskus] 1 each IH BID 09/18/18 Metoprolol Succinate [Toprol Xl] 25 mg PO HS 09/18/18 Omeprazole Magnesium [Prilosec Otc] 20 mg PO PRN PRN 09/18/18 Rivaroxaban [Xarelto -] 20 mg PO HS 09/18/18 Triamterene/Hydrochlorothiazid [Triamterene-Hctz 37.5-25 mg Cp] 1 cap PO DAILY 09/18/18 clonazePAM [Klonopin -] 0.5 mg PO PRN PRN 09/18/18 Oxycodone HCl/Acetaminophen [Percocet 5-325 mg Tablet -] 1 - 2 tab PO Q6H #60 tab MDD 8 12/26/18
[2018-12-27 08:46] LABS: HEMATOCRIT 29.4 % (32.4-45.2); MCH 29.3 pg (25.7-33.7); MEAN CELL VOLUME 86.1 fl (80-96); MEAN PLT VOLUME 6.6 fl (7.5-11.1); PLATELET COUNT 213 K/MM3 (134-434); RBC 3.41 M/mm3 (3.60-5.2); RDW 13.6 % (11.6-15.6); WHITE BLOOD COUNT 6.1 K/mm3 (4.0-10.8)
[2018-12-27 09:22] VITALS: BP 88/41; PULSE 75; TEMP 98.6
[2018-12-27] MEDS ORDERED: PT OWN MED DRAWER 7, Y5N ONE (09:30)
[2018-12-27] MEDS: SENNOSIDES/DOCUSATE COMBO (SENNA PLUS) TABLET (UD) PO SCH (09:37)
[2018-12-27] MEDS: oxyCODONE HCL 10 MG SUSTAINED ACTING TABLET PO SCH (09:37)
[2018-12-27] MEDS: PANTOPRAZOLE 20 MG TABLET (FP) PO SCH (09:37)
[2018-12-27] MEDS: CITALOPRAM HYDROBROMIDE 20 MG TABLET (FP) PO SCH (09:37)
[2018-12-27] MEDS: TRIAMTERENE AND HCTZ - 37.5 MG/25 MG CAPSULE PO SCH (09:38)
[2018-12-27] MEDS: BUDESONIDE/FORMETEROL FUMARATE 80/4.5 mcg INHALER IH SCH ×2 (09:38→09:41)
[2018-12-27] MEDS: MULTIVITAMINS (DAILY MVI) TABLET (FP) PO SCH (11:48)
--- NOTE | 2019-01-02 14:10 | PATH ---
Surgical Pathology Report Patient Name: JHONNY VIVAR Med. Rec. #: [id number] /Age/Gender: 1945 (Age: 73) / F Account: [id number] Location: [facility] MED-SURG Taken: 12/25/2018 Received: 12/25/2018 Reported: 01/02/2019 Physicians: Yosi Clay M.D. Specimen(s) Received BONES RIGHT KNEE Clinical History Osteoarthritis right knee Final Diagnosis BONES, RIGHT KNEE, TOTAL KNEE REPLACEMENT: DEGENERATIVE JOINT DISEASE. Electronically Signed Keyana Tate M.D. Gross Description Received in formalin labeled "bones right knee," is a 12.0 x 10.0 x 1.6 cm aggregate of multiple portions of bone and soft tissue. The tibial plateau measures 7.0 x 5.2 x 1.5 cm. The articular surfaces are oliva-yellow and diffusely granular. No areas of eburnation are identified. The underlying trabecular bone is yellow and hard. [employer] sections are submitted in one cassette, following decalcification. /12/26/2018 [facility]
== END 2018-12-27 12:35 | disposition home health service (06) | DRG 470 ==
LOC: FM/S 07:51
PROVIDERS: ADMIT Orthopaedic Surgery; ATTEND Orthopaedic Surgery
PROC: 8E0Y0CZ Robotic Assisted Procedure of Lower Extremity, Open Approach (ICD-10-PCS; 2018-12-25)
PROC: 0SRC0JA Replacement of Right Knee Joint with Synthetic Substitute, Uncemented, Open Approach (ICD-10-PCS; principal; 2018-12-25 12:27)
DX: M17.11 Unilateral primary osteoarthritis, right knee (principal); B37.9 Candidiasis, unspecified
CPT/HCPCS: 36415; 73560-TC-RT-FY; 85027; 88304-TC; 88311-TC; 94760; 97116-GP; 97162-GP